=== PATIENT | male | born 1990 | race Caucasian/White ===

== ENCOUNTER 2018-02-17 15:47 | Emergency (ER) | payer OTHER ==
[~2018-02-17] VITALS: Ht 190.5 cm; Wt 113.3 kg
[2018-02-17 16:33] LABS: BASOPHILS # (AUTO) 0.03 x10^3/uL (0-0.1); BASOPHILS % (AUTO) 0 % (0-1); EOSINOPHILS # (AUTO) 0.17 x10^3/uL (0-0.4); EOSINOPHILS % (AUTO) 2 % (1-7); LYMPHOCYTES # (AUTO) 3.15 x10^3/uL (1-3.4); LYMPHOCYTES % (AUTO) 34 % (22-44); MD NO; MEAN CORPUSCULAR HEMOGLOBIN 31.5 pg (27.5-34.5); MEAN CORPUSCULAR HGB CONC 34.1 g/dL (33.2-36.2); MEAN CORPUSCULAR VOLUME 92.6 fL (81-97); MEAN PLATELET VOLUME 8.8 fL (7.4-10.4); MONOCYTES # (AUTO) 0.97 x10^3/uL (0.2-0.8); MONOCYTES % (AUTO) 10 % (2-9); NEUTROPHILS # (AUTO) 5.06 x10^3/uL (1.8-6.8); NEUTROPHILS % (AUTO) 54 % (42-75); PLATELET COUNT 233 x10^3/uL (130-400); RED BLOOD COUNT 4.85 x10^6/uL (4.38-5.82); RED CELL DISTRIBUTION WIDTH 12.7 % (9.4-14.8)
[2018-02-17 16:42] LABS: ALANINE AMINOTRANSFERASE 70 U/L (12-78); ALBUMIN 3.8 g/dL (3.4-5.0); ANION GAP 9 mmol/L (5-15); CALCIUM 8.5 mg/dL (8.5-10.1); CHLORIDE 110 mmol/L (98-107); CREATININE 1.23 mg/dL (0.7-1.3)
[2018-02-17 16:45] LABS: CULTURE INDICATED? NO; MICROSCOPIC NOT IND
[2018-02-17 16:45] LABS: ALKALINE PHOSPHATASE 89 U/L (45-117); BILIRUBIN,TOTAL 0.3 mg/dL (0.2-1.0); TOTAL PROTEIN 7.4 g/dL (6.4-8.2)
[2018-02-17] MEDS ORDERED: OMNIPAQUE 350 MG/ML, 100ML BOTTLE ONE (17:29)
[2018-02-17] MEDS ORDERED: LIDOCAINE 1%, 10ML INFIL ONE (19:30)
[2018-02-17] MEDS ORDERED: LIDOCAINE-MPF 1%, 5ML INFIL ONE (19:30)
[2018-02-17 19:55] VITALS: BP 113/74
== END 2018-02-17 20:03 | disposition home or self-care (01) ==
LOC: ED 18:43
DX: K61.1 Rectal abscess (principal)
CPT/HCPCS: 36415; 46050; 72193; 80053; 81003; 85025; 99284; Q9967

== ENCOUNTER 2018-02-20 09:49 | Emergency (ER) | payer OTHER ==
[~2018-02-20] VITALS: Ht 190.5 cm; Wt 113.8 kg
[2018-02-20 10:08] VITALS: BP 123/80
== END 2018-02-20 10:42 | disposition home or self-care (01) ==
LOC: ED 10:40
DX: K61.0 Anal abscess (principal); B02.9 Zoster without complications
CPT/HCPCS: 99283